=== PATIENT | female | born 1985 | race Caucasian/White ===

== ENCOUNTER 2017-03-01 03:30 | Outpatient (CLI) | payer BC ==
[~2017-03-01] VITALS: Ht 162.6 cm; Wt 68.2 kg
[2017-03-01 04:01] VITALS: BP 130/78
== END 2017-03-01 06:38 | disposition home or self-care (01) ==
LOC: LDOP 03:30
PROVIDERS: ATTEND Student in an Organized Health Care Education/Training Program
DX: O26.893 Other specified pregnancy related conditions, third trimester (principal); R10.9 Unspecified abdominal pain; Z3A.37 37 weeks gestation of pregnancy
CPT/HCPCS: 59025; 99201; G0463

== ENCOUNTER 2017-03-06 18:34 | Inpatient (IN) | payer BC ==
[~2017-03-06] VITALS: Ht 162.6 cm; Wt 78.0 kg
[2017-03-06] MEDS: LACTATED RINGERS 1,000 ML IV SCH (18:20)
[2017-03-06] MEDS ORDERED: D5%-LACTATED RINGERS 1,000 ML IV SCH (18:43)
[2017-03-06] MEDS ORDERED: OXYTOCIN 30U/ 0.9% NaCL 500ML 500 ML IV ONE (18:43)
[2017-03-06] MEDS ORDERED: LIDOCAINE 1%, 20ML ONE (18:48)
[2017-03-06] MEDS ORDERED: OXYTOCIN 30U/ 0.9% NaCL 500ML 500 ML ONE ×2 (18:48→19:48)
[2017-03-06] MEDS ORDERED: MISOPROSTOL 200 MCG TABLET ONE (18:48)
[2017-03-06] MEDS ORDERED: FENTANYL PF 100 MCG/2ML ONE (18:49)
[2017-03-06 18:51] VITALS: BP 127/77
[2017-03-06] MEDS ORDERED: ONDANSETRON 2MG/ML, 2ML IVPush PRN (19:00)
[2017-03-06] MEDS ORDERED: PENICILLIN GK 2,500,000 UNITS in DEXTROSE 5% 100 ML IVPB SCH (19:00)
[2017-03-06] MEDS ORDERED: SODIUM CHLORIDE FLUSH 10ML SYR IVF PRN (19:00)
[2017-03-06] MEDS ORDERED: PENICILLIN GK 5,000,000 UNITS in DEXTROSE 5% 100 ML IVPB ONE (19:00)
[2017-03-06] MEDS ORDERED: NEWBORN KIT ONE (19:00)
[2017-03-06] MEDS ORDERED: FENTANYL PF 100 MCG/2ML IV PRN (19:00)
[2017-03-06] MEDS ORDERED: FENTANYL PF 100 MCG/2ML IVPush PRN (19:00)
[2017-03-06 19:03] LABS: HEMATOCRIT 41.2 % (34.6-47.8); HEMOGLOBIN 14.2 g/dL (11.7-16.4); WHITE BLOOD COUNT 14.1 x10^3/uL (3.4-10)
[2017-03-06] MEDS: OXYTOCIN 30U/ 0.9% NaCL 500ML 500 ML IV SCH (19:56)
[2017-03-06] MEDS ORDERED: ACETAMINOPHEN 325 MG TABLET PO PRN (20:00)
[2017-03-06] MEDS ORDERED: METOCLOPRAMIDE 5 MG/ML, 2ML IV PRN (20:00)
[2017-03-06] MEDS ORDERED: MISOPROSTOL 200 MCG TABLET PR PRN (20:00)
[2017-03-06] MEDS ORDERED: IBUPROFEN 800 MG TABLET PO PRN (20:00)
[2017-03-06] MEDS ORDERED: BISACODYL 10 MG SUPP PR PRN (20:00)
[2017-03-06] MEDS ORDERED: OXYcodone/APAP 5/325MG TABLET PO PRN (20:00)
[2017-03-06] MEDS ORDERED: GLYCERIN ADULT SUPP PR PRN (20:00)
[2017-03-06] MEDS ORDERED: ONDANSETRON 2MG/ML, 2ML IV PRN (20:00)
[2017-03-06 20:45] VITALS: BP 114/62
[2017-03-06 21:45] VITALS: BP 122/74
[2017-03-06 22:40] VITALS: BP 106/60
[2017-03-07 01:50] VITALS: BP 117/78
[2017-03-07] MEDS: LACTATED RINGERS 1,000 ML IV SCH ×4 (02:43→23:38)
[2017-03-07] MEDS: OXYTOCIN 30U/ 0.9% NaCL 500ML 500 ML IV SCH ×2 (05:40→15:40)
[2017-03-07 06:50] VITALS: BP 113/72
[2017-03-07 07:01] LABS: HEMATOCRIT 39.8 % (34.6-47.8); HEMOGLOBIN 13.6 g/dL (11.7-16.4); WHITE BLOOD COUNT 16.8 x10^3/uL (3.4-10)
[2017-03-07] MEDS ORDERED: PRENATAL VIT/IRON/FA 1 EACH TABLET ONE (07:55)
[2017-03-07] MEDS: DOCUSATE 100 MG CAPSULE PO PRN (07:57)
[2017-03-07] MEDS: PRENATAL VIT/IRON/FA 1 EACH TABLET PO SCH (07:57)
[2017-03-07 11:50] VITALS: BP 111/71
[2017-03-07] MEDS ORDERED: FLU VACC QS2017-18 (36MOS+) UP/PF 0.5 ML IM-VACC ONE (14:30)
[2017-03-07 16:33] VITALS: BP 110/77
[2017-03-07 20:00] VITALS: BP 104/76
[2017-03-08] MEDS: OXYTOCIN 30U/ 0.9% NaCL 500ML 500 ML IV SCH ×2 (01:40→01:47)
[2017-03-08 07:00] VITALS: BP 111/75
[2017-03-08] MEDS: DOCUSATE 100 MG CAPSULE PO PRN (09:48)
[2017-03-08] MEDS: PRENATAL VIT/IRON/FA 1 EACH TABLET PO SCH (09:48)
[2017-03-08] MEDS ORDERED: IBUP-1223 PO (11:02)
[2017-03-08] MEDS ORDERED: OXYC-302 PO (11:03)
== END 2017-03-08 18:00 | disposition home or self-care (01) | DRG 775 ==
LOC: LDOP 18:34 → LDIP 18:46 → 2NW 20:31
PROVIDERS: ADMIT Student in an Organized Health Care Education/Training Program; ATTEND Student in an Organized Health Care Education/Training Program
PROC: 10E0XZZ Delivery of Products of Conception, External Approach (ICD-10-PCS; principal; 2017-03-06)
PROC: 0HQ9XZZ Repair Perineum Skin, External Approach (ICD-10-PCS; 2017-03-06)
DX: O99.824 Streptococcus B carrier state complicating childbirth (principal); Z37.0 Single live birth; O70.0 First degree perineal laceration during delivery; Z3A.37 37 weeks gestation of pregnancy
CPT/HCPCS: 36415; 85025; 86850; 86900; 90686; J2540; J3010; J2590; J7120

== ENCOUNTER 2017-05-22 06:08 | Day surgery (SDC) | payer BC ==
[~2017-05-22] VITALS: Ht 162.6 cm; Wt 59.8 kg
[~2017-05-22 06:08] MED LIST: IBUP-1223 PO; OXYC-302 PO
[2017-05-22 06:49] VITALS: BP 121/80
[2017-05-22 06:51] LABS: HCG UR LOT HCG7060132
[2017-05-22] MEDS ORDERED: PREN1TAB10 PO (06:53)
[2017-05-22] MEDS ORDERED: LACTATED RINGERS 1,000 ML IV SCH (06:53)
[2017-05-22 06:59] LABS: HCG UR OBC PASS
[2017-05-22] MEDS ORDERED: LIDOCAINE 1%, 2ML SQ PRN (07:00)
[2017-05-22] MEDS ORDERED: BUPIVACAINE/PF 0.5% ONE (07:07)
[2017-05-22] MEDS ORDERED: EPINEPHRINE 1 MG/ML, 1ML ONE (07:07)
[2017-05-22] MEDS ORDERED: FENTANYL PF 250 MCG/5ML ONE (07:48)
[2017-05-22] MEDS ORDERED: MIDAZOLAM 1 MG/ML, 2ML ONE (07:48)
[2017-05-22] MEDS ORDERED: PROPOFOL 50 ML ONE (07:48)
[2017-05-22] MEDS ORDERED: ONDANSETRON 2MG/ML, 2ML ONE (07:54)
[2017-05-22] MEDS ORDERED: DEXAMETHASONE 4 MG/ML, 1ML ONE (07:54)
[2017-05-22] MEDS ORDERED: CEFAZOLIN 1,000 MG ONE (07:54)
[2017-05-22] MEDS ORDERED: ONDANSETRON 2MG/ML, 2ML IVPush PRN (08:00)
[2017-05-22] MEDS ORDERED: OXYcodone 5 MG/5 ML ORAL.SOL UDC PO PRN (08:00)
[2017-05-22] MEDS ORDERED: HYDROcodone/APAP 7.5-325MG/15ML UDC PO PRN (08:00)
[2017-05-22] MEDS ORDERED: FENTANYL PF 100 MCG/2ML IV PRN (08:00)
[2017-05-22] MEDS ORDERED: ACETAMINOPHEN 325 MG TABLET PO PRN (08:00)
[2017-05-22] MEDS ORDERED: HYDROmorphone 1 MG/ML, 1ML IV PRN (08:00)
== END 2017-05-22 10:40 ==
LOC: OR 06:08
PROVIDERS: ATTEND Surgery
DX: K42.9 Umbilical hernia without obstruction or gangrene (principal); Z98.890 Other specified postprocedural states
CPT/HCPCS: 49585; 81025; J0171; J0690; J1100; J2405; J2704; J3010; J3490; J7120; J2250